=== PATIENT | male | born 1965 | race Hispanic/Latino ===

== ENCOUNTER → 2018-04-26 | Outpatient (CLI) | payer BC ==
[~2018-04-26] MED LIST: OMEGA-31000 MG PO; VITAMIN B-121000 MCG PO
== END | disposition home or self-care (01) ==
LOC: RAD 05:00 → OR 05-08 07:54 → EDSTATUS 05-08 10:00
PROVIDERS: ATTEND Internal Medicine Gastroenterology
DX: Z12.11 Encounter for screening for malignant neoplasm of colon (principal); Z53.09 Procedure and treatment not carried out because of other contraindication
CPT/HCPCS: 93005